=== PATIENT | female | born 1975 | race Two or more races ===

== ENCOUNTER → 2024-09-21 | Outpatient (CLI) | payer MEDICAID, SELFPAY ==
--- NOTE | 2024-09-21 08:15 | XR_ITS ---
Examination: Diagnostic digital mammography, bilateral Computer aided detection 3-D breast Tomosynthesis, bilateral Date and time of exam: September 21, 2024 0819 hours INDICATIONS: Mammogram 06/16/2024 suspicious microcalcifications retroareolar region right and left breast Technique: Nonmagnified MLO, CC views of the breasts to been obtained, reconstructed from 3-D Tomosynthesis images. R2 computer aided detection program utilized for evaluation of suspicious masses and/or abnormal calcifications. 3-D Tomosynthesis images obtained. Findings: The breasts are heterogeneously dense, which may obscure small masses Suspicious grouped microcalcifications are confirmed retroareolar region right and left breast Impression: BI-RADS Category 4: Suspicious for malignancy Suspicious grouped microcalcifications are confirmed retroareolar region right and left breast Biopsy of both foci microcalcifications needed to exclude breast carcinoma These calcifications are amenable to bilateral stereotactic breast biopsy for diagnosis.
== END | disposition home or self-care (01) ==
LOC: CDIM 08:10
PROVIDERS: Referring Provider Internal Medicine; Visit Provider Internal Medicine
DX: R92.343 Mammographic extreme density, bilateral breasts (principal); R92.0 Mammographic microcalcification found on diagnostic imaging of breast
CPT/HCPCS: 77062; 77066; G0279

== ENCOUNTER → 2024-11-16 | Outpatient (CLI) | payer MEDICAID, SELFPAY ==
[2024-11-15 16:28] LABS: Basophils % (Auto) 0 % (0-2.5); Eosinophils # (Auto) 0.1 Thou/mm3 (0.0-0.5); Eosinophils % (Auto) 1 % (0-10); Hematocrit 32.2 % (36.0-46.0); Hemoglobin 10.5 g/dL (12.0-16.0); Immature Granulocytes % (Auto) 0 % (0-0); Immature Granulocytes Auto 0.01 Thou/mm3 (0.00-0.00); Lymphocytes # (Auto) 2.7 Thou/mm3 (1.0-4.8); Lymphocytes % (Auto) 37 % (10-50); Mean Corpuscular HGB Conc 32.6 g/dl (31.0-37.0); Mean Corpuscular Hemoglobin 27.7 pg (25.0-35.0); Mean Corpuscular Volume 85 fL (80-100); Monocytes # (Auto) 0.6 Thou/mm3 (0.0-0.8); Monocytes % (Auto) 9 % (0-12); Neutrophils # (Auto) 3.9 Thou/mm3 (1.8-7.7); Neutrophils % (Auto) 53 % (37-80); Nucleated Red Blood Cell % 0 /100 WBC (0); Platelet Count 277 Thou/mm3 (140-440); RDW Standard Deviation 45.1 fL (36.4-46.3); Red Blood Count 3.79 Miln/mm3 (4.00-5.20); White Blood Count 7.3 Thou/mm3 (3.6-11.0)
[2024-11-15 16:32] LABS: HCG,Qualitative Serum Negative
[2024-11-15 17:01] LABS: INR 1.1 (0.9-1.3); Partial Thromboplastin Time 24.6 Seconds (22.0-36.0); Prothrombin Time 11.6 Seconds (9.0-12.2)
--- NOTE | 2024-11-16 10:00 | XR_ITS ---
Examination: Stereotactic guided vacuum assisted right breast biopsy with clip placement Specimen radiograph Date and time of exam:November 16, 2024 1047 hours INDICATIONS: Mammogram September 21, 2024 BI-RADS 4 suspicious microcalcifications retroareolar region right breast Timeout performed, documenting correct patient, order, referring physician, patient's site and reason for procedure, allergies to medications Informed consent provided. Time out performed Technique: The lesion right breast was localized with a stereotactic apparatus. Local anesthesia was obtained after prepping the skin at the entrance site and applying sterile drape Maximum sterile barrier technique. 6 core biopsies were then obtained, vacuum assisted, stereotactically guided, at the lesion site. Specimens appear adequate. Stereotactic breast marker was introduced at the lesion site Estimated blood loss 2 cc. Patient tolerated the procedure well and appeared in satisfactory and stable condition at completion of the procedure Pathology report to follow Impression: Successful stereotactic breast biopsy as described above. Specimen radiograph contains the biopsied suspicious microcalcifications.
== END | disposition home or self-care (01) ==
LOC: CDIM 08:17
PROVIDERS: Radiology Diagnostic Radiology; PCP Internal Medicine; Referring Provider Internal Medicine; Visit Provider Internal Medicine
DX: D24.1 Benign neoplasm of right breast (principal); Z01.812 Encounter for preprocedural laboratory examination
CPT/HCPCS: 19081; 36415; 84703; 85025; 85610; 85730; A4648; A4649

== ENCOUNTER 2024-11-28 16:18 | Emergency (ER) | payer MEDICAID, SELFPAY ==
[2024-11-28 16:32] VITALS: BP 112/75; PULSE 77; RESP 16; TEMP 36.9; O2SAT 98; BMI 25.6
--- NOTE | 2024-11-28 16:43 | EDRME_ITS ---
Rapid Medical Screening Exam E Arrival date/time: 11/28/24 16:18 49-year-old female with no known medical history presents to the emergency room with a chief complaint of bilateral lower abdominal 7 out of 10 tenderness that radiates to the bilateral flanks. Patient denies any dysuria or lumbar tenderness. Patient was seen by her PAPER CUP HANDLE MACHINE OPERATOR and states she was sent to the emergency room for further workup. I have greeted and performed a focused initial assessment of this patient. A comprehensive ED assessment and evaluation of the patient, analysis of all test results, and completion of the medical decision making process will be conducted by additional ED providers. Chief Complaint: Back Pain/Injury Time Seen by Provider: 11/28/24 16:25 Vital signs: Vital Signs Temperature 98.4 F 11/28/24 16:32 Pulse Rate 77 11/28/24 16:32 Respiratory Rate 16 11/28/24 16:32 Blood Pressure 112/75 11/28/24 16:32 Pulse Oximetry (%) 98 11/28/24 16:32 Oxygen Delivery Method Room Air 11/28/24 16:32 Vital signs reviewed by provider: Yes
--- NOTE | 2024-11-28 16:43 | XR_ITS ---
Examination: CT abdomen and pelvis without contrast. Coronal 3-D reconstructions. Sagittal 2-D reconstructions. Date and time of exam:November 2024 1825 hrs. Indications: Onset lower abdominal pain today CTDI: vol (mGy): 10.1 DLP: (mGycm): 542 Technique: Axial images of the abdomen have been obtained, 3 mm slice thickness Intravenous contrast material has not been administered. Low dose protocols were performed. One or more of the following dose reduction techniques were used; automated exposure control, adjustment of the mA and/or KV according to patient size, use of iterative reconstruction technique. Findings: No focal liver or splenic lesions Contracted gallbladder No pancreatic or adrenal mass No renal or ureteral calculi, no hydronephrosis Aorta normal size No bowel obstruction 12 mm fat-containing umbilical hernia Normal appendix No diverticulitis No definite uterine or adnexal mass Mildly fluid distended small bowel loops in the pelvis, for instance image 187 Urinary bladder intact The osseous structures are intact Impression: No renal or ureteral calculi, no hydronephrosis Normal appendix Mildly fluid distended small bowel loops in the pelvis, consider ileus, enteritis, clinical correlation advised
[2024-11-28 17:18] LABS: Basophils % (Auto) 1 % (0-2.5); Eosinophils # (Auto) 0.1 Thou/mm3 (0.0-0.5); Eosinophils % (Auto) 1 % (0-10); Hematocrit 33.4 % (36.0-46.0); Hemoglobin 10.8 g/dL (12.0-16.0); Immature Granulocytes % (Auto) 0 % (0-0); Immature Granulocytes Auto 0.01 Thou/mm3 (0.00-0.00); Lymphocytes # (Auto) 2.9 Thou/mm3 (1.0-4.8); Lymphocytes % (Auto) 44 % (10-50); Mean Corpuscular HGB Conc 32.3 g/dl (31.0-37.0); Mean Corpuscular Hemoglobin 27.9 pg (25.0-35.0); Mean Corpuscular Volume 86 fL (80-100); Monocytes # (Auto) 0.5 Thou/mm3 (0.0-0.8); Monocytes % (Auto) 7 % (0-12); Neutrophils # (Auto) 3.1 Thou/mm3 (1.8-7.7); Neutrophils % (Auto) 48 % (37-80); Nucleated Red Blood Cell % 0 /100 WBC (0); Platelet Count 304 Thou/mm3 (140-440); RDW Standard Deviation 47.5 fL (36.4-46.3); Red Blood Count 3.87 Miln/mm3 (4.00-5.20); White Blood Count 6.6 Thou/mm3 (3.6-11.0)
[2024-11-28 17:44] LABS: Alanine Aminotransferase 19 U/L (10-49); Albumin, Serum 4.4 gm/dL (3.5-5.0); Albumin/Globulin Ratio 1.6 (1.2-2.2); Alkaline Phosphatase 52 U/L (46-116); Anion Gap 9 (7-16); Aspartate Amino Transferase 21 U/L (0-34); BUN/Creatinine Ratio 18 Ratio (12-20); Bilirubin,Total 0.4 mg/dL (0.3-1.2); Blood Urea Nitrogen 14 mg/dL (9-23); Calcium 9.5 mg/dL (8.3-10.6); Calcium (Corrected) 9.5 mg/dL (8.5-10.1); Carbon Dioxide 24.7 mMol/L (20.0-31.0); Chloride 108 mMol/L (98-107); Creatinine (Component) 0.8 mg/dL (0.6-1.3); Estimated Creatinine Clearance 88.3 mL/min (>60); Globulin 2.8 gm/dL (2.3-3.5); Glucose 92 mg/dL (74-106); Lipase 76 U/L (12-53); Osmolality,Calculated 283 (275-295); Potassium 3.9 mMol/L (3.4-5.1); Sodium 142 mMol/L (136-145); Total Protein 7.2 gm/dL (5.7-8.2); eGFR > 60 See Note
[2024-11-28 17:59] LABS: Collection Type, Urine Clean Catch
[2024-11-28 18:04] LABS: Bilirubin,Urine Negative (Negative); Blood,Urine Trace (Negative); Clarity,Urine Clear (Clear/Hazy); Color,Urine Yellow (Lt Yel-Yel); Glucose, Urine Negative (Negative); Ketones,Urine Negative (Negative); Leukocyte Esterase,Urine Negative (Negative); Nitrite,Urine Negative (Negative); PH,Urine 6.5 (5.0-7.0); Protein,Urine Negative (Neg - Trace); RBC,Urine 2 /hpf (0-3); Specific Gravity,Urine 1.009 (1.001-1.035); Squamous Epithelial Cell,Urine 3 /hpf (0-5); Urobilinogen,Urine Negative mg/dL (0.0-1.0); WBC,Urine 1 /hpf (0-5)
[2024-11-28 18:10] LABS: HCG Qualitative,Urine Negative
--- NOTE | 2024-11-28 20:26 | PD.EDBACK ---
ED Back Injury Pain RME/HPI General Chief Complaint: Back Pain/Injury Stated Complaint: SEVERE LOWER BACK PAIN RADIATING TO THE LOWER ABD. Time Seen by Provider: 11/28/24 16:25 Arrival date/time: 11/28/24 16:18 RME / HPI RME / HPI Narrative: Patient is a 49-year-old female who presents to the ED with complaint of bilateral lower abdominal pain that radiates to her back on both sides. Patient states the pain is 7 out of 10. The pain is episodic and she has episodes of very severe pain, followed by no pain at all. Patient denies any dysuria. Patient sent to the ED by patient's production finisher. No chest pain or palpitations. No shortness of breath. No fevers. Related Data Home Medications ?Medication ?Instructions ?Recorded ?Confirmed No Known Home Medications 10/25/19 10/25/19 Allergies Allergy/AdvReac Type Severity Reaction Status Date / Time No Known Allergies Allergy Verified 11/28/24 16:22 Review of Systems Review of Systems Systems Reviewed: All systems reviewed, normal except as documented ED Exam Narrative Physical exam: Constitutional: no acute distress, age appropriate, non-toxic Eyes: PERRL, conjunctivae w/o pallor, EOMI HENT: normocephalic, atraumatic. Oral mucosa moist Respiratory Effort: no stridor, effort normal, no retractions Breath sounds: Clear bilaterally; No rales, No rhonchi, No wheezing Cardiovascular: regular rhythm, S1 and S2 normal, no murmur Abdominal: soft; non-distended, non-tender. No CVA tenderness. Musculoskeletal: no deformities, no swelling, no LE edema. No lumbar tenderness. Skin: warm, dry; No rash Neurology: alert, oriented X 4. Normal gait. Moves all extremities spontaneously. Psychology: cooperative, normal mood Course Quality Measures none Orders Category Date Time Status CT abdomen pelvis wo con Stat Exams 11/28/24 16:43 Completed CBC Stat Lab 11/28/24 16:47 Completed CMP [Comprehensive Metabolic Panel] Stat Lab 11/28/24 16:47 Completed HCG Qualitative,Urine Stat Lab 11/28/24 17:43 Completed Lipase Stat Lab 11/28/24 16:47 Completed UA [Urinalysis] Stat Lab 11/28/24 17:43 Completed Urine Culture Stat Lab 11/28/24 17:43 Received Vital Signs Vital signs: Vital Signs Temperature 98.4 F 11/28/24 16:32 Pulse Rate 77 11/28/24 16:32 Respiratory Rate 16 11/28/24 16:32 Blood Pressure 112/75 11/28/24 16:32 Pulse Oximetry (%) 98 11/28/24 16:32 Oxygen Delivery Method Room Air 11/28/24 16:32 Back Pain / Injury MDM Narrative MDM Narrative:: Patient with history as above presented with abdominal pain and back pain. History obtained from patient. Patient was nontoxic, stable. Ambulatory. Exam as above. Labs reviewed. Mild anemia, otherwise unremarkable Independently interpreted imaging. CT negative for any acute findings except for some mild enteritis Differential diagnosis considered. Overall presentation is consistent with low risk abdominal pain. Low suspicion for cholecystitis, appendicitis, SBO, AAA rupture, or other serious pathology. Patient was treated with pain medications with improvement in symptoms. Consideration was given for admission, but the patient was stable for outpatient management. Disposition: Discussed need to follow up diagnostics, including incidental findings. Discharged with instructions to obtain outpatient follow up of patient?s symptoms and findings, with strict return precautions if patient develops new or worsening symptoms. Patient data External records reviewed:: [facility] previous records Clinical information provided by:: patient Social determinants that could affect healthcare access:: none Patient has the following chronic illnesses:: History of ovarian cysts How is presenting disease/condition affected by chronic disease/condition?: exacerbated by Evaluation data The following diagnostics were reviewed and interpreted by me:: lab results and radiology exam(s) Lab and/or radiology exams considered but not ordered:: None Interpretation Summary: CBC shows no leukocytosis. Mild stable anemia. CMP shows no electrolyte abnormalities, no DONELL. LFTs less than 3x upper limit of normal UA unremarkable hCG negative Examination: CT abdomen and pelvis without contrast. Coronal 3-D reconstructions. Sagittal 2-D reconstructions. Date and time of exam:November 2024 1825 hrs. Indications: Onset lower abdominal pain today Findings: No focal liver or splenic lesions Contracted gallbladder No pancreatic or adrenal mass No renal or ureteral calculi, no hydronephrosis Aorta normal size No bowel obstruction 12 mm fat-containing umbilical hernia Normal appendix No diverticulitis No definite uterine or adnexal mass Mildly fluid distended small bowel loops in the pelvis, for instance image 187 Urinary bladder intact The osseous structures are intact Impression: No renal or ureteral calculi, no hydronephrosis Normal appendix Mildly fluid distended small bowel loops in the pelvis, consider ileus, enteritis, clinical correlation advised Medications / Prescriptions Medications or Prescriptions considered but not ordered:: None Medication administrations:: N/A Consultations Consultation(s) initiated? (list below): No Diagnosis Differential diagnosis back pain/injury: lumbar radiculopathy, strain of lumbar region, thoracic back pain and other (See MDM) Most likely diagnosis given after review of the tests above:: Back pain, abdominal pain Admission Indicated Admission indicated?: not indicated Admission Request Was there a request for admission?: No Disposition Plan Disposition Plan: Discharge Discharge Attestation Discharge Attestation: The patient and all family members were given an opportunity to ask questions and understood the discharge instructions. Discharge instructions specifically effects, indications for sooner follow up or return to the emergency department, and the expected course of current diagnosis. Patient condition: Stable Discharge Plan Plan Patient Disposition: HOME (Self Care) Prescriptions/Referrals Prescriptions/Med Rec: No Action No Known Home Medications Referrals: No Primary/Family,Physician [Primary Care Provider] - In 1 week Problem List Clinical Impression: Back pain, History of ovarian cyst Patient/Caregiver Discharge Instructions Education Materials: Ovarian Cysts Additional Instructions: Your testing done in the ED today was reassuring. Follow-up with your RUG CUTTER HELPER and primary care. Return to the ED at anytime for any new or worsening symptoms. Print Language: French Stand Alone Forms: Gabriela Award Info., Patient Portal Info Letter
== END 2024-11-28 20:36 | disposition home or self-care (01) ==
PROVIDERS: Nurse Practitioner Family; Emergency Provider Emergency Medicine
DX: M54.50 Low back pain, unspecified (principal); R10.32 Left lower quadrant pain; R10.31 Right lower quadrant pain; K63.89 Other specified diseases of intestine
CPT/HCPCS: 36415; 74176; 80053; 81001; 81025; 83690; 85025; 87086; 99284